=== PATIENT | female | born 1975 | race Two or more races ===

== ENCOUNTER 2018-01-16 15:13 | Emergency (ER) | payer BC, OTHER ==
[~2018-01-16] VITALS: Ht 162.6 cm; Wt 89.4 kg
[2018-01-16 15:20] VITALS: BP 140/78
[2018-01-16] MEDS ORDERED: KETOROLAC TROMETH 60MG/2ML VIAL IM ONE (16:45)
== END 2018-01-16 17:11 | disposition home or self-care (01) ==
LOC: ER 15:20
DX: S83.92XA Sprain of unspecified site of left knee, initial encounter (principal); S93.402A Sprain of unspecified ligament of left ankle, initial encounter; X50.0XXA Overexertion from strenuous movement or load, initial encounter; Y93.89 Activity, other specified; Y99.8 Other external cause status; Y92.89 Other specified places as the place of occurrence of the external cause
CPT/HCPCS: 96372; 99283; J1885